=== PATIENT | male | born 1985 | race African-American/Black ===

== ENCOUNTER 2023-01-12 15:22 | Emergency (ER) | payer MEDICAID ==
[~2023-01-12] VITALS: Ht 182.9 cm; Wt 57.6 kg
[2023-01-12] MEDS ORDERED: KETOROLAC TROMETHAMINE 15 MG INJ ONE (16:58)
[2023-01-12] MEDS ORDERED: ONDANSETRON 4 MG/2 ML VIAL ONE (16:58)
[2023-01-12] MEDS ORDERED: KETOROLAC TROMETHAMINE 15 MG INJ IVP ONE (17:00)
[2023-01-12] MEDS ORDERED: ONDANSETRON 4 MG/2 ML VIAL IV ONE (17:00)
[2023-01-12] MEDS ORDERED: IV NORMAL SALINE 1000 ML BAG IV ONE (17:00)
[2023-01-12] MEDS ORDERED: BICT1TAB PO (19:01)
[2023-01-12] MEDS ORDERED: AMOX-430 PO (19:01)
[2023-01-12] MEDS ORDERED: AZIT1PAC9 PO (19:01)
[2023-01-12] MEDS ORDERED: ONDA4TAB5 PO (19:04)
[2023-01-12 19:16] VITALS: BP 119/78; TEMP 98.2; O2SAT 100
== END 2023-01-12 19:17 | disposition home or self-care (01) ==
LOC: ER 15:27
DX: R50.9 Fever, unspecified (principal); R53.1 Weakness; Z79.2 Long term (current) use of antibiotics; Z79.899 Other long term (current) drug therapy; Z20.822 Contact with and (suspected) exposure to COVID-19
CPT/HCPCS: 99284; 96374; 71045; 96361; 96375; 87426; 87804 ×2; 87420; J1885; J2405; J7040; A4606; A4663